=== PATIENT | male | born 2000 | race Caucasian/White ===

== ENCOUNTER 2024-08-25 12:36 | Emergency (ER) | payer OTHER ==
[~2024-08-25] VITALS: Ht 180.3 cm; Wt 113.4 kg
[2024-08-25] MEDS ORDERED: IBUP-1022 PO (14:03)
[2024-08-25 14:26] VITALS: BP 137/64; TEMP 97; O2SAT 100
== END 2024-08-25 14:28 | disposition home or self-care (01) ==
LOC: M ED 12:36
DX: S93.402A Sprain of unspecified ligament of left ankle, initial encounter (principal); X50.3XXA Overexertion from repetitive movements, initial encounter; Y92.009 Unspecified place in unspecified non-institutional (private) residence as the place of occurrence of the external cause; Y93.89 Activity, other specified; Y99.9 Unspecified external cause status